=== PATIENT | male | born 1985 | race Caucasian/White ===

== ENCOUNTER 2016-09-29 09:27 | Outpatient (CLI) | payer OTHER ==
[~2016-09-29] VITALS: Ht 175.3 cm; Wt 65.4 kg
[~2016-09-29 09:27] MED LIST: ASPI325T32 PO; DOXY100C2 PO; HYDR-34 PO; HYDR1TAB PO; METO50TA7; PHEN-515 PO; PHEN-633; SULF1TAB38 PO
[2016-09-29] MEDS ORDERED: PHEN97.2 PO (09:39)
[2016-09-29 09:45] VITALS: BP 122/82
== END 2016-09-29 09:58 | disposition home or self-care (01) ==
LOC: PREOP 09:27
PROVIDERS: ATTEND Surgery
DX: Z01.818 Encounter for other preprocedural examination (principal); Z11.2 Encounter for screening for other bacterial diseases
CPT/HCPCS: 87081

== ENCOUNTER 2016-10-05 07:27 | Day surgery (SDC) | payer OTHER ==
[~2016-10-05] VITALS: Ht 175.3 cm; Wt 65.4 kg
[~2016-10-05 07:27] MED LIST changes: +LACTATED RINGERS 1,000 ML IV PRN; +PHEN97.2 PO
[2016-10-05] MEDS ORDERED: NS (IVPB) 50 ML ONE (07:34)
[2016-10-05] MEDS ORDERED: ceFAZolin 1,000 MG (ANCEF) VIAL ONE (07:34)
[2016-10-05] MEDS ORDERED: CATHETER FLUSH 10 ML SYR IV PRN (07:45)
[2016-10-05] MEDS ORDERED: ceFAZolin 1 GM/NS 50 ML IVPB IV ONE ×2 (07:45)
--- NOTE | 2016-10-05 07:51 | Progress Note-Pre Operative ---
Pre-Operative Progress Note H&P Reviewed The H&P was reviewed, patient examined and no changes noted. Date Seen by Provider: Oct 05, 2016 Time Seen by Provider: 07:51 Date H&P Reviewed: Oct 05, 2016 Time H&P Reviewed: 07:51 Pre-Operative Diagnosis: foreign body abdomen GURU DURAN DO Oct 05, 2016 7:51 am
[2016-10-05] MEDS ORDERED: MIDAZOLAM 2 MG/2 ML (VERSED) VIAL ONE (08:02)
[2016-10-05] MEDS ORDERED: fentaNYL INJECTION 100 MCG/2 ML AMP ONE (08:02)
[2016-10-05] MEDS ORDERED: proPOfol 200 MG/20 ML (DIPRIVAN) VIAL IV ONE (08:02)
[2016-10-05 08:10] VITALS: BP 120/82
[2016-10-05] MEDS ORDERED: LIDOCAINE 1% INJ 20 ML (XYLOCAINE) VIAL ONE (08:13)
[2016-10-05] MEDS ORDERED: BUPIVACAINE 0.5% 30 ML (SENSORCAINE) VIAL ONE (08:13)
--- NOTE | 2016-10-05 08:54 | Progress Note-Post Operative ---
Post-Operative Progess Note Surgeon (s)/Network Support Analyst (s) Surgeon GURU DURAN DO Network Support Analyst: na Pre-Operative Diagnosis Foreign Body Abdomen Post-Operative Diagnosis same Procedure & Operative Findings Date of Procedure 10/05/16 Procedure Performed/Findings removal foreign body subcutaneous tissue of abdomen Anesthesia Type mac Estimated Blood Loss Estimated blood loss (mL): minimal Specimens/Packing Specimens Removed na GURU DURAN DO Oct 05, 2016 8:54 am
--- NOTE | 2016-10-05 08:56 | Discharge Inst-Simple/Standard ---
Discharge Inst-Standard Patient Instructions/Follow Up Plan of Care/Instructions/FU: follow up 12-14 days Julianna Activity as Tolerated: Yes Discharge Diet: Regular Diet Other Inst to Patient Follow up Appt: Make appointment for 12-14 days for suture removal. Instructions: No strenuous activity. May shower in 24 hours, no tub bath or soaking. Use incentive spirometer at home as directed. No Smoking Skin/Wound Care: May remove bandages in 24 hours. Symptoms to Report: Appetite Changes, Extremity Discoloration, Numbness/Tingling, Swelling Increased , Bleeding Excessive, Eyesight Changes, Pain Increased, Urine Color Change, Constipation(Persistent), Fever over 101 degree F, Pain/Pressure in chest, Urinating Difficulty, Cough Up/Vomit Blood, Heart Beat Irreg/Pounding, Pain/ Pressure in jaw, Vaginal Bleeding Increase, Cramps in feet or legs, Lightheadedness, Pain/Pressure in shoulder, Diarrhea(Persistent), Memory Changes Suddenly, Questions/Concerns, Weight gain consecutive days, Dizziness/ Fainting, Nausea/Vomiting, Shortness of Breath, Weight gain over 2 pounds If questions or concerns contact your physician Or seek help at emergency department. GURU DURAN DO Oct 05, 2016 8:56 am
[2016-10-05 09:30] VITALS: BP 98/61
[2016-10-05 10:00] VITALS: BP 97/77
[2016-10-05 10:25] VITALS: BP 113/82
--- NOTE | 2016-10-05 15:10 | OPERATIVE REPORT ---
DATE OF SERVICE: 10/05/2016 PREOPERATIVE DIAGNOSIS: Foreign body in the subcutaneous layer of the abdomen. POSTOPERATIVE DIAGNOSIS: Foreign body in the subcutaneous layer of the abdomen. PROCEDURE: Removal of foreign body in the subcutaneous layer of the abdomen. SURGEON: Guru Levine DO ANESTHESIA: MAC. ESTIMATED BLOOD LOSS: Minimal. COMPLICATIONS: None. INDICATIONS: The patient is a 31-year-old male with a history of exploratory laparotomy. He recently has been having severe abdominal pain in the subcutaneous layer secondary to a foreign body, which was seems to be sticking him. There is a palpable foreign body present. I believe this to be a suture. He was explained risks and benefits of procedure and wished to proceed with procedure. Consent was signed and on the chart. DESCRIPTION OF PROCEDURE: The patient was taken to the operating suite, was prepped and draped in sterile fashion. Surgical pause was performed. Local anesthetic of 0.5% Marcaine and 1% lidocaine 50:50 ratio was used to anesthetize the area of the palpable foreign body. A #15 blade scalpel was used to make an incision over the area, which palpation I was able to feel the area and had incorporated into the skin. This is a Prolene suture, was angled directly ingrowing into the skin. This was able to be dissected around and was then transected more towards the deep subcutaneous and fascia. The wound was then irrigated. The skin was then closed using 3-0 nylon in a simple interrupted fashion. Before closing, there was no other palpable mass or foreign body noted. The area was then washed and dried, sterile bandage was applied. The patient tolerated the procedure well without any complications. He was taken to the recovery room in stable condition. Job ID: [id number] DocumentID: [id number] Dictated Date: 10/05/2016 08:59:40 Gasoline Engine Assembler Date: 10/05/2016 13:46:59 Dictated By: GURU LEVINE DO
== END 2016-10-05 10:25 | disposition home or self-care (01) ==
LOC: SDC 07:27
PROVIDERS: ATTEND Surgery
DX: L92.3 Foreign body granuloma of the skin and subcutaneous tissue (principal); Z18.89 Other specified retained foreign body fragments; R56.9 Unspecified convulsions; F17.210 Nicotine dependence, cigarettes, uncomplicated; Z79.899 Other long term (current) drug therapy

== ENCOUNTER 2017-03-13 11:33 | Emergency (ER) | payer SELFPAY ==
[~2017-03-13] VITALS: Ht 175.3 cm; Wt 61.7 kg
[~2017-03-13 11:33] MED LIST changes: -LACTATED RINGERS 1,000 ML IV PRN
[2017-03-13] MEDS ORDERED: morphine INJ 10 MG/ML 1ML (SYR OR VIAL) IVP ONE (12:00)
[2017-03-13] MEDS ORDERED: KETOROLAC 30 MG/ML VIAL IVP ONE (12:00)
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
--- OUTSIDE RECORDS SUMMARY | 2017-03-13 12:01 | XMS REPORT | Continuity of Care Document ---
Author Author [facility] Organization [facility] Address Unknown Phone Unavailable Allergies Active Description Code Type Severity Reaction Onset Reported/Identified Relationship to Patient Clinical Status Yes NKANo Known Allergies NKA Miscellaneous Allergy Unknown N/A 04/28/2005 Yes No Known Drug Allergies [id number] Drug Allergy Mild N/A 08/17/2008 Yes No Known Drug Allergies [id number] Drug Allergy Unknown N/A 09/29/2016 Medications There is no data. Problems Date Dx Coded Attending Type Code Diagnosis Diagnosed By 09/29/2009 Ot 681.00 09/29/2009 Ot V06.1 10/01/2009 Ot 681.02 11/04/2009 Ot 305.20 11/04/2009 Ot 345.90 11/04/2009 Ot 780.39 11/04/2009 Ot 920 11/04/2009 Ot E000.8 11/04/2009 Ot E001.1 11/04/2009 Ot E888.9 09/02/2010 Ot 285.1 09/02/2010 Ot 305.1 09/02/2010 Ot 305.20 09/02/2010 Ot 345.90 09/02/2010 Ot 401.9 09/02/2010 Ot 518.5 09/02/2010 Ot 863.30 09/02/2010 Ot 867.3 09/02/2010 Ot 868.14 09/02/2010 Ot 902.53 09/02/2010 Ot 902.54 09/02/2010 Ot E965.0 01/13/2011 Ot 285.9 01/13/2011 Ot 511.9 01/13/2011 Ot 584.9 01/13/2011 Ot 591 01/13/2011 Ot 789.00 01/13/2011 Ot 998.12 09/14/2014 Ot V67.09 09/14/2014 Ot 789.07 09/14/2014 MARY PENA, GIAN Pedroza Ot 784.0 03/14/2015 JOSS PENA, JOHNNA Okeefe Ot F12.10 CANNABIS ABUSE, UNCOMPLICATED 03/14/2015 JOHNNA COREAS MD Ot F17.210 NICOTINE DEPENDENCE, CIGARETTES, UNCOMPL 03/14/2015 JOSS PENA, JOHNNA Okeefe Ot G40.409 OTH GENERALIZED EPILEPSY, NOT INTRACTABL 05/31/2015 MARY PENA, GIAN Pedroza Ot F12.10 CANNABIS ABUSE, UNCOMPLICATED 05/31/2015 MARY PENA, GIAN Pedroza Ot F17.210 NICOTINE DEPENDENCE, CIGARETTES, UNCOMPL 05/31/2015 MARY PENA, GIAN Pedroza Ot G40.909 EPILEPSY, UNSP, NOT INTRACTABLE, WITHOUT 05/31/2015 MARY PENA, GIAN Pedroza Ot 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 06/01/2015 CHIDI PENA, ABDIAZIZ Okeefe Ot R56.9 06/02/2015 MARY PENA, GIAN Pedroza Ot F12.10 06/02/2015 MARY PENA, GIAN Pedroza Ot F17.210 06/02/2015 MARY PENA, GIAN Pedroza Ot G40.909 06/02/2015 MARY PENA, GIAN Pedroza Ot Z79.899 09/27/2016 CHIDI PENA, ABDIAZIZ Okeefe Ot R56.9 UNSPECIFIED CONVULSIONS 09/27/2016 ABDIAZIZ MURILLO MD Ot R56.9 UNSPECIFIED CONVULSIONS 09/28/2016 CHIDI PENA, ABDIAZIZ Okeefe Ot R56.9 UNSPECIFIED CONVULSIONS 10/05/2016 GURU DURAN DO Ot F17.210 NICOTINE DEPENDENCE, CIGARETTES, UNCOMPL 10/05/2016 GURU DURAN DO Ot 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 10/05/2016 GURU DURAN DO Ot R56.9 UNSPECIFIED CONVULSIONS 10/05/2016 GURU DURAN DO Ot Z18.89 OTHER SPECIFIED RETAINED FOREIGN BODY FR 10/05/2016 GURU DURAN DO Ot Z79.899 OTHER CUSTODIAL (CURRENT) DRUG THERAPY 10/09/2016 GURU DURAN DO Ot F17.210 NICOTINE DEPENDENCE, CIGARETTES, UNCOMPL 10/09/2016 GURU DURAN DO Ot 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 Results Test Result Range Methicillin resistant Staphylococcus aureus (MRSA) screening culture - 09:50 Methicillin resistant Staphylococcus aureus (MRSA) screening culture NEG NRG Encounters ACCT No. Visit Date/Time Discharge Status Pt. Type Provider Facility Loc./Unit Complaint [id number] 10/05/2016 07:27:00 10/05/2016 10:25:00 DIS Outpatient GURU DURAN DO [facility] SDC FOREIGN BODY ABDOMEN [id number] 09/29/2016 09:27:00 09/29/2016 09:58:00 DIS Outpatient GURU DURAN DO [facility] PREOP FOREIGN BODY ABDOMEN [id number] 05/31/2015 15:05:00 05/31/2015 15:35:00 DIS Emergency MARY PENA, GIAN Pedroza [facility] ER SEIZURE [id number] 03/14/2015 08:21:00 03/14/2015 09:40:00 DIS Emergency JOSS PENA, JOHNNA Okeefe [facility] ER SEIZURE [id number] 11/27/2014 08:09:00 11/27/2014 23:59:59 CLS Outpatient CHIDI PENA, ABIDAZIZ Okeefe [facility] RT SEIZURE [id number] 09/14/2014 08:53:00 09/14/2014 09:25:00 DIS Emergency MARY PENA, GIAN Pedroza [facility] ER [id number] 01/13/2011 17:14:00 Document Registration [id number] 10/03/2010 12:56:00 Document Registration [id number] 09/12/2010 12:20:00 Document Registration [id number] 08/24/2010 05:00:00 Document Registration [id number] 11/04/2009 11:58:00 Document Registration [id number] 10/01/2009 18:49:00 Document Registration [id number] 09/29/2009 12:20:00 Document Registration
--- NOTE | 2017-03-13 12:03 | ED General ---
General Stated Complaint: RIB PAIN Source of Information: Patient Exam Limitations: No Limitations History of Present Illness Date Seen by Provider: Mar 13, 2017 Time Seen by Provider: 12:01 Initial Comments To ER accompanied by his mother, screaming with back pain. Pain is between his shoulder blades. This began this morning when he bent over. He went to chiropractor Dr. Leggett who referred him to the emergency room. States he's never had pain like this before. Timing/Duration: 1-2 Days Severity: Moderate Allergies and Home Medications Allergies Coded Allergies: No Known Drug Allergies (Unverified , 09/29/16) Home Medications Phenobarbital 97.2 Mg Tablet, 97.2 MG PO BID, (Reported) Constitutional: see HPI EENTM: see HPI Respiratory: no symptoms reported Cardiovascular: no symptoms reported Genitourinary: no symptoms reported Musculoskeletal: see HPI Skin: see HPI Psychiatric/Neurological: No Symptoms Reported Hematologic/Lymphatic: No Symptoms Reported Immunological/Allergic: no symptoms reported Past Bviwxsa-Uxhpic-Aajiry Hx Patient Social History Type Used: Cigarettes Recent Foreign Travel: No Contact w/Someone Who Travel: No Recent Hopitalizations: No Immunizations Up To Date Tetanus Booster (TDap): Unknown Seasonal Allergies Seasonal Allergies: No Cardiovascular Cardiac Disorders: Hypertension Neurological Neurological Disorders: Seizure Disorder Reproductive System Hx Reproductive Disorders: No Sexually Transmitted Disease: No HIV/AIDS: No Musculoskeletal Musculoskeletal Disorders: Chronic Back Pain HEENT Loss of Vision: Denies Hearing Impairment: Denies Blood Transfusions Adverse Reaction to a Blood Tr: No (HAS HAD BLOOD WITH NO REACTION) Physical Exam Vital Signs Vital Sign - Last 12Hours 03/13/17 12:27 Pulse 95 Resp 22 B/P (MAP) 136/123 (127) Pulse Ox 99 O2 Delivery Room Air Capillary Refill : General Appearance: No Apparent Distress, WD/WN, Moderate Distress Eyes: Bilateral Eye Normal Inspection, Bilateral Eye PERRL, Bilateral Eye EOMI HEENT: PERRL/EOMI, TMs Normal Neck: Full Range of Motion, Normal Inspection Respiratory: Normal Breath Sounds, No Accessory Muscle Use, No Respiratory Distress Cardiovascular: Regular Rate, Rhythm, Normal Peripheral Pulses Gastrointestinal: Normal Bowel Sounds, Non Tender, Soft Back: Other (Left medial scapular border tender to palpation but without erythema, ecchymosis,) Extremity: Normal Capillary Refill, Normal Inspection Neurologic/Psychiatric: Alert, Oriented x3, No Motor/Sensory Deficits Skin: Normal Color, Warm/Dry (and was scheduled tonight and tomorrow night filled onTomorrow a.m. to 1 around 1) Progress/Results/Core Measures Suspected Sepsis SIRS Temperature: Pulse: Respiratory Rate: Laboratory Tests 03/13/17 12:05: White Blood Count 9.3 Blood Pressure / Mean: Laboratory Tests 03/13/17 12:05: Creatinine 0.81, Platelet Count 293, Total Bilirubin 0.6 Results/Orders Lab Results Laboratory Tests Test 03/13/17 12:05 Range/Units White Blood Count 9.3 4.3-11.0 10^3/uL Red Blood Count 5.05 4.35-5.85 10^6/uL Hemoglobin 15.8 13.3-17.7 G/DL Hematocrit 45 40-54 % Mean Corpuscular Volume 88 80-99 FL Mean Corpuscular Hemoglobin 31 25-34 PG Mean Corpuscular Hemoglobin Concent 35 32-36 G/DL Red Cell Distribution Width 12.9 10.0-14.5 % Platelet Count 293 130-400 10^3/uL Mean Platelet Volume 10.7 H 7.4-10.4 FL Neutrophils (%) (Auto) 69 42-75 % Lymphocytes (%) (Auto) 23 12-44 % Monocytes (%) (Auto) 6 0-12 % Eosinophils (%) (Auto) 1 0-10 % Basophils (%) (Auto) 0 0-10 % Neutrophils # (Auto) 6.4 1.8-7.8 X 10^3 Lymphocytes # (Auto) 2.2 1.0-4.0 X 10^3 Monocytes # (Auto) 0.6 0.0-1.0 X 10^3 Eosinophils # (Auto) 0.1 0.0-0.3 10^3/uL Basophils # (Auto) 0.0 0.0-0.1 10^3/uL Sodium Level 140 135-145 MMOL/L Potassium Level 4.3 3.6-5.0 MMOL/L Chloride Level 104 98-107 MMOL/L Carbon Dioxide Level 23 21-32 MMOL/L Anion Gap 13 5-14 MMOL/L Blood Urea Nitrogen 17 7-18 MG/DL Creatinine 0.81 0.60-1.30 MG/DL Estimat Glomerular Filtration Rate > 60 BUN/Creatinine Ratio 21 Glucose Level 101 70-105 MG/DL Calcium Level 9.7 8.5-10.1 MG/DL Total Bilirubin 0.6 0.1-1.0 MG/DL Aspartate Amino Transf (AST/SGOT) 18 5-34 U/L Alanine Aminotransferase (ALT/SGPT) 15 0-55 U/L Alkaline Phosphatase 75 40-136 U/L Total Protein 7.9 6.4-8.2 GM/DL Albumin 4.7 H 3.2-4.5 GM/DL My Orders Orders - MARY MARCOS APRN Cbc With Automated Diff (03/13/17 11:59) Comprehensive Metabolic Panel (03/13/17 11:59) Saline Lock/Iv-Start (03/13/17 11:59) Ketorolac Injection (Toradol Injection) (03/13/17 12:00) Morphine Injection (Morphine Injection (03/13/17 12:00) Chest Pa/Lat (2 View) (03/13/17 11:59) Ct Cervical/Thoracic Spine Wo (03/13/17 11:59) Fentanyl Injection (Sublimaze Injection (03/13/17 12:30) Ct Chest W (03/13/17 12:38) Iohexol Injection (Omnipaque 350 Mg/Ml 1 (03/13/17 12:45) Ns (Ivpb) (Sodium Chloride 0.9% Ivpb Bag (03/13/17 12:45) Lorazepam Injection (Ativan Injection) (03/13/17 13:00) Orphenadrine Injection (Norflex Injectio (03/13/17 13:15) Lorazepam Injection (Ativan Injection) (03/13/17 13:30) Ketamine Injection (Ketalar Injection) (03/13/17 14:15) Medications Given in ED Current Medications Medications Dose Ordered Sig/Nancy Route Start Time Stop Time Status Last Admin Dose Admin Fentanyl Citrate 50 mcg ONCE ONCE IVP 03/13/17 12:30 03/13/17 12:31 DC 03/13/17 12:26 50 MCG Iohexol 75 ml ONCE ONCE IV 03/13/17 12:45 03/13/17 12:53 DC 03/13/17 13:04 75 ML Ketamine HCl 20 mg ONCE ONCE IV 03/13/17 14:15 03/13/17 14:16 DC 03/13/17 14:12 20 MG Ketorolac Tromethamine 30 mg ONCE ONCE IVP 03/13/17 12:00 03/13/17 12:02 DC 03/13/17 12:12 30 MG Lorazepam 1 mg ONCE ONCE IVP 03/13/17 13:30 03/13/17 13:31 DC 03/13/17 13:36 1 MG Morphine Sulfate 5 mg ONCE ONCE IVP 03/13/17 12:00 03/13/17 12:02 DC 03/13/17 12:12 5 MG Sodium Chloride 100 ml ONCE ONCE IV 03/13/17 12:45 03/13/17 12:53 DC 03/13/17 13:04 80 ML Vital Signs/I&O Vital Sign - Last 12Hours 03/13/17 12:27 Pulse 95 Resp 22 B/P (MAP) 136/123 (127) Pulse Ox 99 O2 Delivery Room Air Capillary Refill : Departure Communication (Admissions) Progress Notes 1332-continues to moan and scream in pain. Sitting on the edge of the bed as this is his position of comfort. Screams even louder with even light touch of the left scapula. This is despite 5 mg of morphine, 30 mg of Toradol and 50 g of fentanyl. Patient states his lips or tingling. Ativan 1 mg IV ordered. 1439- after 20 mg of ketamine mixed in a 10 cc syringe push over 5 minutes patient is now able to lay down and allow palpation over this area of his back. There is a palpable knot. We will Discharge to home now that pain is better controlled. Impression Impression: Primary Impression: Thoracic back pain Disposition: 01 HOME, SELF-CARE Condition: Stable Departure-Patient Inst. Decision time for Depature: 13:53 Referrals: NO,LOCAL PHYSICIAN (PCP) Primary Care Physician Patient Instructions: NO INSTRUCTIONS GIVEN Add. Discharge Instructions: . Call your regular provider today to make an appointment to be seen within the next 48 hours. Return to ER for any concerns such as shortness of breath or fevers Scripts Hydrocodone/Acetaminophen ([place] 10-325 Tablet) 1 Each Tablet 1 EACH PO Q6H Y for PAIN-SEVERE TO BREAKTHROUGH, #14 TAB Prov: MARY MARCOS [employer]URBINE BLADE ASSEMBLER 03/13/17 Images Torso/Trunk 1 - Tenderness MARY MARCOS APRN Mar 13, 2017 12:03
[2017-03-13 12:29] LABS: BASOPHILS % (AUTO) 0 % (0-10); EOSINOPHILS # (AUTO) 0.1 10^3/uL (0.0-0.3); EOSINOPHILS % (AUTO) 1 % (0-10); HEMATOCRIT 45 % (40-54); HEMOGLOBIN 15.8 G/DL (13.3-17.7); LYMPHOCYTES # (AUTO) 2.2 X 10^3 (1.0-4.0); LYMPHOCYTES % (AUTO) 23 % (12-44); MEAN CORPUSCULAR HEMOGLOBIN 31 PG (25-34); MEAN CORPUSCULAR HGB CONC 35 G/DL (32-36); MEAN CORPUSCULAR VOLUME 88 FL (80-99); MEAN PLATELET VOLUME 10.7 FL (7.4-10.4); MONOCYTES # (AUTO) 0.6 X 10^3 (0.0-1.0); MONOCYTES % (AUTO) 6 % (0-12); NEUTROPHILS # (AUTO) 6.4 X 10^3 (1.8-7.8); NEUTROPHILS % (AUTO) 69 % (42-75); PLATELET COUNT 293 10^3/uL (130-400); RED BLOOD COUNT 5.05 10^6/uL (4.35-5.85); RED CELL DISTRIBUTION WIDTH 12.9 % (10.0-14.5); WHITE BLOOD COUNT 9.3 10^3/uL (4.3-11.0)
[2017-03-13] MEDS ORDERED: fentaNYL INJECTION 100 MCG/2 ML AMP IVP ONE (12:30)
[2017-03-13 12:44] LABS: ALANINE AMINOTRANSFERASE 15 U/L (0-55); ALBUMIN 4.7 GM/DL (3.2-4.5); ALKALINE PHOSPHATASE 75 U/L (40-136); BILIRUBIN,TOTAL 0.6 MG/DL (0.1-1.0); BUN/CREATININE RATIO 21; CALCIUM 9.7 MG/DL (8.5-10.1); CARBON DIOXIDE 23 MMOL/L (21-32); CHLORIDE 104 MMOL/L (98-107); CREATININE SERUM 0.81 MG/DL (0.60-1.30); GFR ESTIMATED > 60; GLUCOSE 101 MG/DL (70-105); POTASSIUM 4.3 MMOL/L (3.6-5.0); SODIUM 140 MMOL/L (135-145); TOTAL PROTEIN 7.9 GM/DL (6.4-8.2)
[2017-03-13] MEDS ORDERED: NS 100 ML (IVPB) BAG IV ONE (12:45)
[2017-03-13] MEDS ORDERED: IOHEXOL 350 MG/ML 100 ML (OMNIPAQUE 350) VIAL IV ONE (12:45)
[2017-03-13] MEDS ORDERED: LORazepam INJ 2 MG/ML (ATIVAN) VIAL IVP ONE ×2 (13:00→13:30)
[2017-03-13] MEDS ORDERED: ORPHENADRINE 60 MG/2 ML (NORFLEX) AMP IV ONE (13:15)
--- NOTE | 2017-03-13 13:20 | Diagnostic Imaging Report ---
INDICATION: Back pain. COMPARISON: 01/15/2011. FINDINGS: Frontal and lateral views of the chest demonstrate normal heart size and pulmonary vascularity. The lungs are clear. There are no signs of infiltrate, pleural effusions or pneumothoraces. The visualized osseous structures show no acute abnormalities. IMPRESSION: 1. No acute process. No signs of infiltrates, effusions or pneumothoraces. Dictated by: Dictated on workstation # [id number]
--- NOTE | 2017-03-13 13:30 | Diagnostic Imaging Report ---
PROCEDURE: CT chest with contrast only. TECHNIQUE: Multiple contiguous axial images were obtained through the chest after administration of intravenous contrast. INDICATION: Pain between shoulder blades. No prior studies are available for comparison. The thoracic aorta is normal caliber. No dissection is identified. No pericardial or pleural fluid is detected. No definite axillary, hilar or mediastinal lymphadenopathy is detected. No pneumothorax is identified. No infiltrates or masses are seen. The upper abdomen is unremarkable. IMPRESSION: Unremarkable CT of the chest. Dictated by: Dictated on workstation # [id number]
--- NOTE | 2017-03-13 13:42 | Diagnostic Imaging Report ---
PATIENT HISTORY: Back discomfort in the medial upper back beginning yesterday and increasing. Question displaced rib. TECHNIQUE: Axial noncontrast CT of the cervical spine and the thoracic spine, with sagittal and coronal reformats. COMPARISON: None. FINDINGS: CT cervical spine: No acute fracture or malalignment is seen in the cervical spine. Minimal osteophytic changes are seen at C4-C5. The disc heights are preserved. The vertebral body heights are preserved. The prevertebral soft tissues are unremarkable. The remainder of the surrounding soft tissues are unremarkable on this noncontrast study. CT thoracic spine: No acute fracture or malalignment is seen in the thoracic spine. There is no evidence of rib displacement. Alignment of the thoracic spine is normal. There is a minimal degenerative change at T3-T4. Otherwise, the disc heights are preserved. The vertebral body heights are preserved. The soft tissue contents of the spinal canal are suboptimally evaluated by CT, however, no hyperdense fluid collection or bony fragments are seen. No significant stenosis is appreciated. The surrounding soft tissues are unremarkable. The imaged portions of the lungs are also unremarkable. IMPRESSION: 1. No acute osseous abnormality is seen in the cervical or thoracic spine. 2. Minimal degenerative changes at C4-C5 and T3-T4. Dictated by: Dictated on workstation # [id number]
[2017-03-13] MEDS ORDERED: KETAMINE HCL 100 MG/ML 5 ML VIAL IV ONE (14:15)
[2017-03-13] MEDS ORDERED: HYDR-753 PO (14:41)
[2017-03-13 14:57] VITALS: BP 127/86
== END 2017-03-13 14:57 | disposition home or self-care (01) ==
LOC: EDUNIT# 11:33 → ER 11:35
DX: M54.6 Pain in thoracic spine (principal); G40.909 Epilepsy, unspecified, not intractable, without status epilepticus; I10 Essential (primary) hypertension
CPT/HCPCS: 36415; 71046; 71260; 72125; 72128; 80053; 85025; 96374; 96375

== ENCOUNTER 2017-09-10 10:09 | Emergency (ER) | payer SELFPAY ==
[~2017-09-10] VITALS: Ht 175.3 cm; Wt 68.0 kg
[~2017-09-10 10:09] MED LIST changes: +HYDR-753 PO
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
--- OUTSIDE RECORDS SUMMARY | 2017-09-10 10:39 | XMS REPORT | Continuity of Care Document ---
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 06/01/2015 CHIDI PENA, ABDIAZIZ Okeefe Ot R56.9 06/02/2015 MARY PENA, GIAN Pedroza Ot F12.10 06/02/2015 MARY PEAN, GIAN Pedroza Ot F17.210 06/02/2015 MARY PENA, GIAN Pedroza Ot G40.909 06/02/2015 MARY PENA, GIAN Pedroza Ot Z79.899 09/27/2016 CHIDI PENA, ABDIAZIZ Okeefe Ot R56.9 UNSPECIFIED CONVULSIONS 09/27/2016 CHIDI PENA, ABDIAZIZ Okeefe Ot R56.9 UNSPECIFIED CONVULSIONS 09/28/2016 ABDIAZIZ MURILLO MD Ot R56.9 UNSPECIFIED CONVULSIONS 09/29/2016 GURU DURAN DO Ot Z01.818 ENCOUNTER FOR OTHER PREPROCEDURAL EXAMIN 09/29/2016 GURU DURAN DO Ot Z11.2 ENCOUNTER FOR SCREENING FOR OTHER BACTER 10/05/2016 GURU DURAN DO Ot F17.210 NICOTINE DEPENDENCE, CIGARETTES, UNCOMPL 10/05/2016 GURU DURAN DO Ot 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 10/05/2016 GURU DURAN DO Ot R56.9 UNSPECIFIED CONVULSIONS 10/05/2016 GURU DURAN DO Ot Z18.89 OTHER SPECIFIED RETAINED FOREIGN BODY FR 10/05/2016 GURU DURAN DO Ot Z79.899 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 10/09/2016 GURU DURAN DO Ot F17.210 NICOTINE DEPENDENCE, CIGARETTES, UNCOMPL 10/09/2016 GURU DURAN DO Ot 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 Results Test Result Range Methicillin resistant Staphylococcus aureus (MRSA) screening culture - 09:50 Methicillin resistant Staphylococcus aureus (MRSA) screening culture NEG NRG Complete blood count (CBC) with automated white blood cell (WBC) differential - 03/13/17 12:05 Blood leukocytes automated count (number/volume) 9.3 10*3/uL 4.3-11.0 Blood erythrocytes automated count (number/volume) 5.05 10*6/uL 4.35-5.85 Venous blood hemoglobin measurement (mass/volume) 15.8 g/dL 13.3-17.7 Blood hematocrit (volume fraction) 45 % 40-54 Automated erythrocyte mean corpuscular volume 88 [foz_us] 80-99 Automated erythrocyte mean corpuscular hemoglobin (mass per erythrocyte) 31 pg 25-34 Automated erythrocyte mean corpuscular hemoglobin concentration measurement ( mass/volume) 35 g/dL 32-36 Automated erythrocyte distribution width ratio 12.9 % 10.0-14.5 Automated blood platelet count (count/volume) 293 10*3/uL 130-400 Automated blood platelet mean volume measurement 10.7 [foz_us] 7.4-10.4 Automated blood neutrophils/100 leukocytes 69 % 42-75 Automated blood lymphocytes/100 leukocytes 23 % 12-44 Blood monocytes/100 leukocytes 6 % 0-12 Automated blood eosinophils/100 leukocytes 1 % 0-10 Automated blood basophils/100 leukocytes 0 % 0-10 Blood neutrophils automated count (number/volume) 6.4 10*3 1.8-7.8 Blood lymphocytes automated count (number/volume) 2.2 10*3 1.0-4.0 Blood monocytes automated count (number/volume) 0.6 10*3 0.0-1.0 Automated eosinophil count 0.1 10*3/uL 0.0-0.3 Automated blood basophil count (count/volume) 0.0 10*3/uL 0.0-0.1 Comprehensive metabolic panel - 03/13/17 12:05 Serum or plasma sodium measurement (moles/volume) 140 mmol/L 135-145 Serum or plasma potassium measurement (moles/volume) 4.3 mmol/L 3.6-5.0 Serum or plasma chloride measurement (moles/volume) 104 mmol/L 98-107 Carbon dioxide 23 mmol/L 21-32 Serum or plasma anion gap determination (moles/volume) 13 mmol/L 5-14 Serum or plasma urea nitrogen measurement (mass/volume) 17 mg/dL 7-18 Serum or plasma creatinine measurement (mass/volume) 0.81 mg/dL 0.60-1.30 Serum or plasma urea nitrogen/creatinine mass ratio 21 NRG Serum or plasma creatinine measurement with calculation of estimated glomerular filtration rate > NRG Serum or plasma glucose measurement (mass/volume) 101 mg/dL 70-105 Serum or plasma calcium measurement (mass/volume) 9.7 mg/dL 8.5-10.1 Serum or plasma total bilirubin measurement (mass/volume) 0.6 mg/dL 0.1-1.0 Serum or plasma alkaline phosphatase measurement (enzymatic activity/volume) 75 U/L 40-136 Serum or plasma aspartate aminotransferase measurement (enzymatic activity/ volume) 18 U/L 5-34 Serum or plasma alanine aminotransferase measurement (enzymatic activity/volume ) 15 U/L 0-55 Serum or plasma protein measurement (mass/volume) 7.9 g/dL 6.4-8.2 Serum or plasma albumin measurement (mass/volume) 4.7 g/dL 3.2-4.5 Encounters ACCT No. Visit Date/Time Discharge Status Pt. Type Provider Facility Loc./Unit Complaint [id number] 03/13/2017 11:35:00 03/13/2017 14:57:00 DIS Outpatient MARY MARCOS APRN [facility] ER RIB PAIN [id number] 10/05/2016 07:27:00 10/05/2016 10:25:00 DIS Outpatient RENEE DOGURU D [facility] SDC FOREIGN BODY ABDOMEN [id number] 09/29/2016 09:27:00 09/29/2016 09:58:00 DIS Outpatient RENEE DOGURU D [facility] PREOP FOREIGN BODY ABDOMEN [id number] 05/31/2015 15:05:00 05/31/2015 15:35:00 DIS Emergency MARY PENA, GIAN Pedroza [facility] ER SEIZURE [id number] 03/14/2015 08:21:00 03/14/2015 09:40:00 DIS Emergency JOSS PENA, JOHNNA K [facility] ER SEIZURE [id number] 11/27/2014 08:09:00 11/27/2014 23:59:59 CLS Outpatient CHIDI PENA, ABDIAZIZ Okeefe [facility] RT SEIZURE [id number] 09/14/2014 08:53:00 09/14/2014 09:25:00 DIS Emergency MARY PENA, GIAN Pedroza [facility] ER [id number] 01/13/2011 17:14:00 Document Registration [id number] 10/03/2010 12:56:00 Document Registration [id number] 09/12/2010 12:20:00 Document Registration [id number] 08/24/2010 05:00:00 Document Registration [id number] 11/04/2009 11:58:00 Document Registration [id number] 10/01/2009 18:49:00 Document Registration [id number] 09/29/2009 12:20:00 Document Registration [id number] 05/08/2017 11:40:00 05/08/2017 23:59:59 CLS Outpatient DAVID PENA, [id number] 11/27/2014 08:13:01 ACT Document Registration
[2017-09-10] MEDS ORDERED: KETOROLAC 60 MG/2 ML VIAL IM ONE (11:00)
[2017-09-10] MEDS ORDERED: ORPHENADRINE 60 MG/2 ML (NORFLEX) AMP IM ONE (11:00)
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
[2017-09-10] MEDS ORDERED: HYDROcodone/APAP 5 MG/325 MG (LORTAB) TAB PO ONE (12:15)
[2017-09-10] MEDS ORDERED: CYCL10TA9 PO (12:23)
[2017-09-10 12:30] VITALS: BP 125/88
== END 2017-09-10 12:37 | disposition home or self-care (01) ==
LOC: EDUNIT# 10:09 → ER 10:11
DX: S29.012A Strain of muscle and tendon of back wall of thorax, initial encounter (principal); I10 Essential (primary) hypertension; G40.909 Epilepsy, unspecified, not intractable, without status epilepticus; F12.10 Cannabis abuse, uncomplicated; F17.210 Nicotine dependence, cigarettes, uncomplicated; Z90.49 Acquired absence of other specified parts of digestive tract; Z96.0 Presence of urogenital implants; X50.0XXA Overexertion from strenuous movement or load, initial encounter; Y92.59 Other trade areas as the place of occurrence of the external cause; Y99.0 Civilian activity done for income or pay
CPT/HCPCS: 96372; 99284

== ENCOUNTER 2018-10-17 11:53 | Emergency (ER) | payer SELFPAY ==
[~2018-10-17] VITALS: Ht 175.3 cm; Wt 63.5 kg
[~2018-10-17 11:53] MED LIST changes: +CYCL10TA9 PO; +HYDR-4196 PO; -HYDR-753 PO
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
[2018-10-17] MEDS ORDERED: HOLD METFORMIN - RECEIVED CONTRAST 20 ML VIAL IV SCH (12:45)
[2018-10-17] MEDS ORDERED: IOHEXOL 350 MG/ML 100 ML (OMNIPAQUE 350) VIAL IV ONE (12:45)
[2018-10-17] MEDS ORDERED: NS 100 ML (IVPB) BAG IV ONE (12:45)
[2018-10-17] MEDS ORDERED: CATHETER FLUSH 10 ML SYR IV PRN (12:45)
--- NOTE | 2018-10-17 13:04 | Diagnostic Imaging Report ---
EXAMINATION: Right hand, three views. INDICATION: Traumatic right hand pain. COMPARISON: None available. FINDINGS: No fracture or acute osseous abnormality. Bony alignment is maintained. No significant arthritic change is noted. Soft tissues are unremarkable. IMPRESSION: No acute fracture or dislocation. Dictated by: Dictated on workstation # [id number]
[2018-10-17 13:11] VITALS: BP 132/87
== END 2018-10-17 13:11 | disposition home or self-care (01) ==
LOC: EDUNIT# 11:53 → ER 11:54
DX: S60.221A Contusion of right hand, initial encounter (principal); I10 Essential (primary) hypertension; G40.909 Epilepsy, unspecified, not intractable, without status epilepticus; Z77.22 Contact with and (suspected) exposure to environmental tobacco smoke (acute) (chronic); Z95.820 Peripheral vascular angioplasty status with implants and grafts; Z87.828 Personal history of other (healed) physical injury and trauma; W22.8XXA Striking against or struck by other objects, initial encounter
CPT/HCPCS: 73130

== ENCOUNTER 2021-10-22 20:05 | Emergency (ER) | payer MEDICAID ==
[~2021-10-22] VITALS: Ht 172 cm; Wt 66.0 kg
[~2021-10-22 20:05] MED LIST changes: +CYCL10TA25 PO; -CYCL10TA9 PO
[2021-10-22] MEDS ORDERED: LACTATED RINGERS 1,000 ML IV ONE (20:15)
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
[2021-10-22 20:39] LABS: BASOPHILS # (AUTO) 0.1 10^3/uL (0.0-0.1); BASOPHILS % (AUTO) 1 % (0-10); EOSINOPHILS # (AUTO) 0.3 10^3/uL (0.0-0.3); EOSINOPHILS % (AUTO) 5 % (0-10); HEMATOCRIT 43 % (40-54); HEMOGLOBIN 14.3 g/dL (13.3-17.7); LYMPHOCYTES # (AUTO) 2.3 10^3/uL (1.0-4.0); LYMPHOCYTES % (AUTO) 34 % (12-44); MEAN CORPUSCULAR HEMOGLOBIN 30 pg (25-34); MEAN CORPUSCULAR HGB CONC 34 g/dL (32-36); MEAN CORPUSCULAR VOLUME 89 fL (80-99); MEAN PLATELET VOLUME 10.3 fL (9.0-12.2); MONOCYTES # (AUTO) 0.6 10^3/uL (0.0-1.0); MONOCYTES % (AUTO) 9 % (0-12); NEUTROPHILS # (AUTO) 3.4 10^3/uL (1.8-7.8); NEUTROPHILS % (AUTO) 51 % (42-75); PLATELET COUNT 266 10^3/uL (130-400); WHITE BLOOD COUNT 6.6 10^3/uL (4.3-11.0)
[2021-10-22 20:52] LABS: ALBUMIN 4.8 GM/DL (3.2-4.5); CHLORIDE 103 MMOL/L (98-107); POTASSIUM 3.6 MMOL/L (3.6-5.0); SODIUM 140 MMOL/L (135-145)
[2021-10-22 20:53] LABS: CALCIUM 9.5 MG/DL (8.5-10.1)
[2021-10-22 20:54] LABS: GLUCOSE 106 MG/DL (70-105)
[2021-10-22 20:55] LABS: TOTAL PROTEIN 7.9 GM/DL (6.4-8.2)
[2021-10-22 20:56] LABS: BILIRUBIN,TOTAL 0.2 MG/DL (0.1-1.0); CARBON DIOXIDE 22 MMOL/L (21-32)
[2021-10-22 20:58] LABS: ALKALINE PHOSPHATASE 73 U/L (40-136); CREATININE SERUM 1.07 MG/DL (0.60-1.30); GFR ESTIMATED 93
[2021-10-22 20:59] LABS: BUN/CREATININE RATIO 17
[2021-10-22 21:01] LABS: ALANINE AMINOTRANSFERASE 19 U/L (0-55)
--- NOTE | 2021-10-22 21:31 | Diagnostic Imaging Report ---
CLINICAL INDICATION: Patient with compressions. EXAM: Portable chest x-ray upright view. COMPARISON: None. FINDINGS: Lungs/pleura: Lungs are clear. There is no pneumothorax. There is no pleural effusion. Mediastinum: Unremarkable. Pulmonary vasculature: Unremarkable. Heart: Unremarkable. Bones/extrathoracic soft tissue: Unremarkable. IMPRESSION: There is no radiographic evidence of acute cardiopulmonary process. Dictated by: Dictated on workstation # [id number]
[2021-10-22 21:55] VITALS: BP 169/105
== END 2021-10-22 21:55 | disposition home or self-care (01) ==
LOC: EDUNIT# 20:05 → ER 20:14
DX: G40.909 Epilepsy, unspecified, not intractable, without status epilepticus (principal); F17.210 Nicotine dependence, cigarettes, uncomplicated
CPT/HCPCS: 36415; 71045; 80053; 80184; 82947; 85025; 86141; 93005

== ENCOUNTER 2022-02-20 10:08 | Emergency (ER) | payer MEDICAID ==
[~2022-02-20] VITALS: Ht 173 cm; Wt 66.0 kg
[2022-02-20] MEDS ORDERED: TETANUS,DIPTH,PERTUSS P/F (BOOSTRIX) 0.5 ML VIAL IM ONE (11:15)
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
[2022-02-20 11:48] VITALS: BP 138/117
== END 2022-02-20 11:48 | disposition home or self-care (01) ==
LOC: EDUNIT# 10:08 → ER 10:10
DX: S61.012A Laceration without foreign body of left thumb without damage to nail, initial encounter (principal); F17.200 Nicotine dependence, unspecified, uncomplicated; Z28.310 Unvaccinated for COVID-19; Z23 Encounter for immunization; W26.0XXA Contact with knife, initial encounter; Y92.009 Unspecified place in unspecified non-institutional (private) residence as the place of occurrence of the external cause
CPT/HCPCS: 12001; 90715